=== PATIENT | male | born 1980 | race African-American/Black ===

== ENCOUNTER 2020-04-18 09:08 | Emergency (ER) | payer MEDICARE, MEDICAID ==
[2020-04-18] MEDS ORDERED: NORMAL SALINE 1000 ML 1,000 ML IV ONE (10:18)
--- NOTE | 2020-04-18 10:19 | ER Document Report ---
ED Medical Screen (RME) - General Chief Complaint: Facial Swelling Stated Complaint: FACIAL SWELLING Time Seen by Provider: 04/18/20 10:13 Primary Care Provider: LASHAWN PRICE MD [Primary Care Provider] - Follow up as needed Mode of Arrival: Wheelchair Information source: Outside Facility Records Notes: 39-year-old male presents to ED for complaint of swelling to the right side of his face neck and behind his ear. He is a resident new home. He has a seizure disorder developmental delay cerebral palsy and stuff like. He is alert acting his usual self. I have greeted and performed a rapid initial assessment of this patient. A comprehensive ED assessment and evaluation of the patient, analysis of test results and completion of medical decision making process will be conducted by an additional ED providers. TRAVEL OUTSIDE OF THE [place] IN LAST 30 DAYS: No - Related Data Allergies/Adverse Reactions: levetiracetam [From [facility]] Allergy (Verified 04/18/20 09:28) Past Medical History - Social History Frequency of alcohol use: None Physical Exam - Vital signs Vitals: Temp Pulse Resp BP Pulse Ox 98.0 F 80 18 150/83 H 97 04/18/20 09:15 04/18/20 09:15 04/18/20 09:15 04/18/20 09:15 04/18/20 09:15 Course - Vital Signs Vital signs: Temp Pulse Resp BP Pulse Ox 98.0 F 80 18 150/83 H 97 04/18/20 09:15 04/18/20 09:15 04/18/20 09:15 04/18/20 09:15 04/18/20 09:15 Doctor's Discharge - Discharge Referrals: LASHAWN PRICE MD [Primary Care Provider] - Follow up as needed
[2020-04-18 11:24] LABS: ABSOLUTE LYMPHOCYTES (AUTO) 1.9 10^3/uL (0.5-4.7); ABSOLUTE MONOCYTES (AUTO) 2.1 10^3/uL (0.1-1.4); ABSOLUTE NEUT (AUTO) 7.5 10^3/uL (1.7-8.2); ALBUMIN 4.4 g/dL (3.5-5.0); ALKALINE PHOSPHATASE 69 U/L (38-126); ANION GAP 10 (5-19); ASPARTATE AMINO TRANSFERASE 109 U/L (17-59); BASOPHILS % (AUTO) 0.2 % (0-2); BILIRUBIN,DIRECT 0.2 mg/dL (0.0-0.4); BILIRUBIN,TOTAL 0.7 mg/dL (0.2-1.3); BLOOD UREA NITROGEN 10 mg/dL (7-20); CALCIUM 9.9 mg/dL (8.4-10.2); CARBON DIOXIDE 29 mmol/L (22-30); CHLORIDE 96 mmol/L (98-107); EOSINOPHILS % (AUTO) 0.1 % (0-6); GLUCOSE 94 mg/dL (75-110); HEMATOCRIT 39.4 % (37.9-51.0); HEMOGLOBIN 13.8 g/dL (13.5-17.0); LYMPHOCYTES % (AUTO) 16.7 % (13-45); MEAN CORPUSCULAR HEMOGLOBIN 29.6 pg (27.0-33.4); MEAN CORPUSCULAR VOLUME 85 fl (80-97); MONOCYTES % (AUTO) 18.2 % (3-13); PLATELET COUNT 122 10^3/uL (150-450); RED BLOOD COUNT 4.66 10^6/uL (4.35-5.55); RED CELL DISTRIBUTION WIDTH 13.3 % (11.5-14.0); SEGMENTED NEUTROPHILS % (AUTO) 64.8 % (42-78); TOTAL CELLS COUNTED % (AUTO) 100 %; WHITE BLOOD COUNT 11.7 10^3/uL (4.0-10.5)
[2020-04-18 11:51] LABS: CREATINE KINASE 4881 U/L (55-170)
[2020-04-18] MEDS ORDERED: KETOROLAC TROMETHAMINE INJ/PF 30 MG/1 ML SDV IV ONE (14:07)
[2020-04-18] MEDS ORDERED: AMPICILLIN SOD/SULBACTAM 3 GM VIAL IV ONE (14:07)
--- NOTE | 2020-04-18 15:26 | RADIOLOGY REPORT (SQ) ---
EXAM DESCRIPTION: CT FACIAL AREA WITH IMAGES COMPLETED DATE/TIME: 04/18/2020 2:03 pm REASON FOR STUDY: Facial neck swelling. Swelling at the right maxillary and mandible region. COMPARISON: None. TECHNIQUE: Post contrast images through the facial bones and orbits windowed for bone and soft tissu e. Additional coronal and sagittal reconstructed images reviewed. All images stored on PACS. All CT scanners at this facility use dose modulation, iterative reconstruction, and/or weight based d osing when appropriate to reduce radiation dose to as low as reasonably achievable (ALARA). [facility]: Dose Right [facility]: CareDose [facility]: Dose Right [facility]: Teradose 4D [facility]: [place] CONTRAST TYPE AND DOSE: contrast/concentration: Isovue 350.00 mmol/ml; Total Contrast Delivered: 75. 0 ml; Total Saline Delivered: 55.0 ml RENAL FUNCTION: GFR > 60. RADIATION DOSE: . LIMITATIONS: None. FINDINGS: FACIAL BONES: No fracture or bone lesion. ORBITS: Intact. No fracture. Symmetric intact globes and retroorbital soft tissues. PARANASAL SINUSES: Clear. No significant mucosal thickening, mass or fluid. No nasal polyps. Maxilla ry sinus outlets are patent. SOFT TISSUES: There is soft tissue edema involving the right maxilla and mandible cheek. No focal dr ainable abscess. INFERIOR BRAIN: Limited view. No acute findings. OTHER: No other significant finding. IMPRESSION: Subcutaneous edema at the right cheek. No underlying foreign body or facial bone fractu re. No drainable abscess. TECHNICAL DOCUMENTATION: JOB ID: [id number] Quality ID # [id number]: Final reports with documentation of one or more dose reduction techniques (e.g., Au tomated exposure control, adjustment of the mA and/or kV according to patient size, use of iterative reconstruction technique) 2010 [employer]- All Rights Reserved Reading location - IP/workstation name: [id number]
--- NOTE | 2020-04-18 16:30 | ER Document Report ---
Entered by CHAVA SANDERS SCRIBE 04/18/20 1453 Acting as scribe for:JUANITO HAYDEN MD ED General - General Chief Complaint: Facial Swelling Stated Complaint: FACIAL SWELLING Time Seen by Provider: 04/18/20 10:13 Primary Care Provider: LASHAWN PRICE MD [Primary Care Provider] - Follow up as needed Mode of Arrival: Wheelchair Notes: This 39 year old male patient with a history of hypertension, cerebral palsy, epilepsy, and thrombocytopenia presents to the ED today from the [facility] facility for evaluation. Home health nurse at bedside reports that she noticed that the patient's right cheek was swollen around 0700 this morning. No reported trauma. Denies fever, chills, or skin lesions. He is non-verbal and non-ambulatory at baseline. TRAVEL OUTSIDE OF THE [place] IN LAST 30 DAYS: No - Related Data Allergies/Adverse Reactions: levetiracetam [From [facility]] Allergy (Verified 04/18/20 09:28) Past Medical History - General Information source: Outside Facility Records - Social History Smoking Status: Never Smoker Cigarette use (# per day): No Chew tobacco use (# tins/day): No Smoking Education Provided: No Frequency of alcohol use: None Lives with: Other - [facility] Family History: Reviewed & Not Pertinent - Past Medical History Cardiac Medical History: Reports: Hx Hypertension Neurological Medical History: Reports: Hx Seizures Review of Systems - Review of Systems Constitutional: See HPI EENT: No symptoms reported Cardiovascular: No symptoms reported Respiratory: No symptoms reported Gastrointestinal: No symptoms reported Genitourinary: No symptoms reported Male Genitourinary: No symptoms reported Musculoskeletal: No symptoms reported Skin: See HPI Hematologic/Lymphatic: No symptoms reported Neurological/Psychological: No symptoms reported -: Yes All other systems reviewed and negative Physical Exam - Vital signs Vitals: Temp Pulse Resp BP Pulse Ox 98.0 F 80 18 150/83 H 97 04/18/20 09:15 04/18/20 09:15 04/18/20 09:15 04/18/20 09:15 04/18/20 09:15 - General General appearance: Other - Sleeping, but easily aroused. In distress: None - HEENT Head: Normocephalic, Atraumatic Eyes: Normal Pupils: PERRL Mouth/Lips: Other - There are retained roots of the molars noted on the Bilateral lower mandibular area - Respiratory Respiratory status: No respiratory distress Chest status: Nontender Breath sounds: Normal Chest palpation: Normal - Cardiovascular Rhythm: Regular Heart sounds: Normal auscultation Murmur: No - Abdominal Inspection: Normal Distension: No distension Bowel sounds: Normal Tenderness: Nontender - Abdomen soft Organomegaly: No organomegaly - Back Back: Normal, Nontender - Extremities General upper extremity: Normal inspection General lower extremity: Normal inspection - Neurological Neuro grossly intact: Yes Cognition: Other - Nonverbal at baseline per home health nurse - Psychological Associated symptoms: Normal affect, Normal mood - Skin Skin Temperature: Warm Skin Moisture: Dry Skin Color: Normal Skin irregularity: Tender indurated area - There is a tender indurated area appreciated on the Right maxillary/mandibular facial area that is swollen and warm to the touch. Course - Re-evaluation Re-evalutation: 04/18/20 16:22 Patient resting comfortable. Easily aroused. Soft tissue swelling on the right angle of the jaw and maxillary region is softer and less swollen than prior to antibiotics and IV ketorolac. - Vital Signs Vital signs: Temp Pulse Resp BP Pulse Ox 97.0 F 80 16 143/89 H 97 04/18/20 15:54 04/18/20 15:54 04/18/20 15:54 04/18/20 15:54 04/18/20 09:15 04/18/20 16:23 Vital signs stable - Laboratory Results Result Diagrams: 04/18/20 10:40 04/18/20 10:40 Laboratory Results Interpreted: 04/18/20 04/18/20 10:40 10:40 WBC 11.7 H Plt Count 122 L [place] % (Auto) 18.2 H Absolute Monos (auto) 2.1 H Sodium 134.5 L Chloride 96 L AST 109 H ALT 61 H Creatine Kinase 4881 H Total Protein 9.0 H Critical Laboratory Results Reviewed: No Critical Results - No critical results of laboratories patient does have a white blood cell count 11.7. - Radiology Results Radiology Results Interpreted: 04/18/20 16:[address] 04/18/20 10:16 IMPRESSION: Subcutaneous edema at the right cheek. No underlying foreign body or facial bone fracture. No drainable abscess. 04/18/20 16:24 CT scan of face shows subcutaneous edema in the right cheek but no facial bone fracture or foreign body and no abscess. Critical Radiology Results Reviewed: No Critical Results Discharge - Discharge Clinical Impression: Facial cellulitis, Dental caries Condition: Stable Disposition: HOME, SELF-CARE Additional Instructions: Cellulitis You have an infection of your skin and underlying soft tissues called cellulitis. This is due to bacteria, which can enter through any break in the skin, or even through an irritated hair follicle. Untreated, cellulitis will usually worsen. Antibiotics are required. Usually, warm packs or warm soaks, and elevation of the infected area are recommended. You should start getting better within 24 to 36 hours. Most infections respond quickly to the right medication. Follow-up care is important, however, to check for abscess (boil) formation, unsuspected foreign body, or resistant infection. If you develop fever, chills, or if the area of infection is becoming rapidly more swollen or painful, call the doctor at once. Most likely the right sided facial cellulitis is is most likely related to the poor dentition of the molars in the lower jaw. Highly recommend that patient have evaluation by oral surgeon/dental. Prescriptions: Amoxicillin/Potassium Clav [Augmentin 875-125 Tablet] 1 tab PO BID #20 tab Clindamycin HCl 300 mg PO QID #40 capsule Ibuprofen [Ibu] 800 mg PO TID PRN 7 Days #21 tablet PRN Reason: prn pain/swelling/fever Referrals: LASHAWN PRICE MD [Primary Care Provider] - Follow up as needed I personally performed the services described in the documentation, reviewed and edited the documentation which was dictated to the scribe in my presence, and it accurately records my words and actions.
[2020-04-18 16:51] VITALS: BP 150/98
== END 2020-04-18 16:53 | disposition home or self-care (01) ==
LOC: ER 09:08
DX: L03.211 Cellulitis of face (principal); K02.9 Dental caries, unspecified; R22.0 Localized swelling, mass and lump, head; I10 Essential (primary) hypertension; D69.6 Thrombocytopenia, unspecified; G80.9 Cerebral palsy, unspecified; Z88.8 Allergy status to other drugs, medicaments and biological substances
CPT/HCPCS: 99285; 96361; 96374; 96375; 36415; 82550; 85025; 80053; 70487; J0295; J1885; J7030

== ENCOUNTER 2020-04-23 09:17 | Emergency (ER) | payer MEDICARE, MEDICAID ==
--- NOTE | 2020-04-23 10:17 | ER Document Report ---
ED Medical Screen (RME) - General Chief Complaint: Facial Swelling Stated Complaint: FACIAL SWELLING Time Seen by Provider: 04/23/20 10:11 Primary Care Provider: LASHAWN PRICE MD [Primary Care Provider] - Follow up as needed Notes: Patient was evaluated here on 04/18/2020 for right facial swelling and diagnosed with cellulitis. Patient was started on clindamycin and Augmentin. Patient is still thickening his antibiotics without improvement of his symptoms. Patient had a temperature of 100.3 yesterday and has continued right cheek pain and swelling. Patient has underlying history of hypertension, ADD, seizure disorder, microcephaly and spastic CP. I have greeted and performed a rapid initial assessment of this patient. A comprehensive ED assessment and evaluation of the patient, analysis of test results and completion of the medical decision making process will be conducted by additional ED providers. TRAVEL OUTSIDE OF THE [place] IN LAST 30 DAYS: No - Related Data Allergies/Adverse Reactions: lamotrigine Allergy (Verified 04/23/20 10:11) levetiracetam [From [facility]] Allergy (Verified 04/18/20 09:28) Home Medications: Vitamin D3, Fibercon, Colace, miralax, Norvasc, Lopressor, Depakene, Tranzene, Claritin, Refresh cell gel 1% Past Medical History - Past Medical History Cardiac Medical History: Reports: Hx Hypertension Neurological Medical History: Reports: Hx Seizures Physical Exam - Vital signs Vitals: Temp Pulse Resp BP Pulse Ox 98.4 F 91 20 126/74 H 98 04/23/20 09:24 04/23/20 09:24 04/23/20 09:24 04/23/20 09:24 04/23/20 09:24 - General General appearance: Alert Notes: Tenderness with palpation of right cheek, right cheek indurated, no overt erythema Course - Vital Signs Vital signs: Temp Pulse Resp BP Pulse Ox 98.4 F 91 20 126/74 H 98 04/23/20 09:24 04/23/20 09:24 04/23/20 09:24 04/23/20 09:24 04/23/20 09:24 Doctor's Discharge - Discharge Referrals: LASHAWN PRICE MD [Primary Care Provider] - Follow up as needed
[2020-04-23 13:08] LABS: ABSOLUTE EOSINOPHILS # (AUTO) 0.2 10^3/uL (0.0-0.6); ABSOLUTE LYMPHOCYTES (AUTO) 0.9 10^3/uL (0.5-4.7); ABSOLUTE MONOCYTES (AUTO) 1.5 10^3/uL (0.1-1.4); ABSOLUTE NEUT (AUTO) 8.2 10^3/uL (1.7-8.2); BASOPHILS % (AUTO) 0.5 % (0-2); EOSINOPHILS % (AUTO) 1.6 % (0-6); HEMATOCRIT 35.4 % (37.9-51.0); HEMOGLOBIN 12.5 g/dL (13.5-17.0); LYMPHOCYTES % (AUTO) 8.5 % (13-45); MEAN CORPUSCULAR HEMOGLOBIN 30.2 pg (27.0-33.4); MEAN CORPUSCULAR HGB CONC 35.4 g/dL (32.0-36.0); MEAN CORPUSCULAR VOLUME 85 fl (80-97); MONOCYTES % (AUTO) 13.8 % (3-13); PLATELET COUNT 175 10^3/uL (150-450); RED BLOOD COUNT 4.16 10^6/uL (4.35-5.55); RED CELL DISTRIBUTION WIDTH 12.9 % (11.5-14.0); SEGMENTED NEUTROPHILS % (AUTO) 75.6 % (42-78); TOTAL CELLS COUNTED % (AUTO) 100 %; WHITE BLOOD COUNT 10.8 10^3/uL (4.0-10.5)
[2020-04-23 13:35] LABS: ALBUMIN 3.6 g/dL (3.5-5.0); ALKALINE PHOSPHATASE 113 U/L (38-126); ANION GAP 8 (5-19); ASPARTATE AMINO TRANSFERASE 41 U/L (17-59); BILIRUBIN,DIRECT 0.2 mg/dL (0.0-0.4); BILIRUBIN,TOTAL 0.5 mg/dL (0.2-1.3); BLOOD UREA NITROGEN 9 mg/dL (7-20); CALCIUM 8.8 mg/dL (8.4-10.2); CARBON DIOXIDE 29 mmol/L (22-30); CHLORIDE 101 mmol/L (98-107); GLUCOSE 91 mg/dL (75-110); POTASSIUM 4.6 mmol/L (3.6-5.0); TOTAL PROTEIN 7.9 g/dL (6.3-8.2)
[2020-04-23] MEDS ORDERED: KETOROLAC TROMETHAMINE INJ/PF 30 MG/1 ML SDV IV ONE (13:43)
--- NOTE | 2020-04-23 13:49 | ER Document Report ---
ED General - General Chief Complaint: Facial Swelling Stated Complaint: FACIAL SWELLING Time Seen by Provider: 04/23/20 10:11 Primary Care Provider: LASHAWN PRICE MD [Primary Care Provider] - Follow up as needed TRAVEL OUTSIDE OF THE [place] IN LAST 30 DAYS: No - HPI Notes: Patient is a 39-year-old male brought to the emergency department for evaluation by caregivers. He was seen here a week ago for facial swelling. He was diagnosed with cellulitis, started on Augmentin and clindamycin. He has been taking these as prescribed, Tylenol and ibuprofen as needed for pain. Per caregiver says swelling is gotten significantly worse. Despite Tylenol and ibuprofen he has had fevers as high as 100.3. He is still eating. Per caregivers his teeth have always been unerupted from the gums. He is still taking oral food, taking his medications. He just seems more agitated. He was seen by his primary care provider today who recommended they return to the ED for further evaluation. - Related Data Allergies/Adverse Reactions: lamotrigine Allergy (Verified 04/23/20 10:11) levetiracetam [From [facility]] Allergy (Verified 04/18/20 09:28) Home Medications: Vitamin D3, Fibercon, Colace, miralax, Norvasc, Lopressor, Depakene, Tranzene, Claritin, Refresh cell gel 1% Past Medical History - General Cannot obtain history due to: Mentally challenged - Social History Smoking Status: Never Smoker Family History: Reviewed & Not Pertinent - Medical History Medical History: Other - Cerebral palsy - Past Medical History Cardiac Medical History: Reports: Hx Hypertension Neurological Medical History: Reports: Hx Seizures Review of Systems - Review of Systems Constitutional: See HPI EENT: See HPI Cardiovascular: No symptoms reported Respiratory: No symptoms reported Gastrointestinal: No symptoms reported Genitourinary: No symptoms reported Musculoskeletal: No symptoms reported Skin: No symptoms reported Neurological/Psychological: No symptoms reported Physical Exam - Vital signs Vitals: Temp Pulse Resp BP Pulse Ox 98.4 F 91 20 126/74 H 98 04/23/20 09:24 04/23/20 09:24 04/23/20 09:24 04/23/20 09:24 04/23/20 09:24 - Notes Notes: There is a 39-year-old male appears stated age in a moderate amount of stress. Head is normocephalic. He has marked edema noted in the perioral region, overlying the Maller region of the right, the tracks back towards the preauricular regions. I do not appreciate any significant calor overlying the parotid. He has some minimal edema under the angle of the jaw but I do not appreciate any significant submandibular adenopathy. Overall dentition is difficult to evaluate secondary to patient cooperation but most of his teeth have not erupted from the gumline. He has no sublingual swelling to palpation, visual inspection is limited. Pupils are equal and round. Oral mucosa is moist. Heart regular rate and rhythm, lungs are clear to auscultation bilaterally. Skin is warm and dry. Course - Re-evaluation Re-evalutation: 04/23/20 13:47 Patient presents to the emergency department for evaluation. He was seen here 6 days ago, diagnosed with cellulitis, given IV antibiotics and started on Augmentin and clindamycin. He has been receiving these appropriately. L aboratory investigations at that time had shown a leukocytosis. This is improved somewhat, he is not febrile here, but again he has been taking Tylenol and ibuprofen. He is given Toradol for perceived pain. I will repeat his CT scan as per caregiver says swelling has worsened. Consent for IV contrast will be obtained from his guardian over the phone. He is currently stable, we will continue to monitor. 04/23/20 16:[address] scan showed continued cellulitis, no signs of abscess. I do believe a lot of his continued edema may be secondary to the fact that he has limited mobility, his lymphatic drainage is certainly retarded by that. He is also been laying flat to sleep. I suspect that this is worsening his edema as well. They are encouraged to keep the head of the bed elevated to release 45 degrees to help with drainage. Beyond this, his white count is come down. I do not think that any additional antibiotics would be helpful given the fact that he is already on Augmentin and clindamycin. He is tolerating these orally, certainly no need for IV antibiotics at this time. He is to continue the course with the clindamycin and Augmentin, follow-up closely with primary care, and return to the ED with worsening. - Vital Signs Vital signs: Temp Pulse Resp BP Pulse Ox 98.4 F 91 20 126/74 H 98 04/23/20 09:24 04/23/20 09:24 04/23/20 09:24 04/23/20 09:24 04/23/20 09:24 - Laboratory Results Result Diagrams: 04/23/20 12:51 04/23/20 12:51 Laboratory Results Interpreted: 04/23/20 04/23/20 12:51 12:51 WBC 10.8 H RBC 4.16 L Hgb 12.5 L Hct 35.4 L Lymph % (Auto) 8.5 L [place] % (Auto) 13.8 H Absolute Monos (auto) 1.5 H Creatinine 0.51 L ALT 53 H Critical Laboratory Results Reviewed: No Critical Results - Radiology Results Radiology Results Interpreted: 04/23/20 16:[address] 04/23/20 13:43 IMPRESSION: Cellulitis. No abscess. Critical Radiology Results Reviewed: No Critical Results Discharge - Discharge Clinical Impression: Facial cellulitis Condition: Stable Disposition: HOME, SELF-CARE Instructions: Cellulitis ([facility]) Additional Instructions: Try to keep head elevated as much as possible, including it bedtime. Continue the antibiotics as previously instructed, ibuprofen as directed. Follow-up closely with primary care provider next week. If he develops any apparent diff iculty breathing or swallowing, or any other new or concerning symptoms, please return immediately to the emergency department for evaluation. Referrals: LASHAWN PRICE MD [Primary Care Provider] - Follow up as needed
--- NOTE | 2020-04-23 15:02 | RADIOLOGY REPORT (SQ) ---
EXAM DESCRIPTION: CT SOFT TISSUE NECK WITH IMAGES COMPLETED DATE/TIME: 04/23/2020 2:49 pm REASON FOR STUDY: edema, fever COMPARISON: None. TECHNIQUE: Post IV contrasted scanning from skull base through lung apices with review of bone, soft tissue and lung windows. Reconstructed coronal and sagittal MPR images reviewed. All images stored on PACS. All CT scanners at this facility use dose modulation, iterative reconstruction, and/or weight based d osing when appropriate to reduce radiation dose to as low as reasonably achievable (ALARA). [facility]: Dose Right [facility]: CareDose [facility]: Dose Right [facility]: Teradose 4D [facility]: [employer] CONTRAST TYPE AND DOSE: contrast/concentration: Isovue 350.00 mmol/ml; Total Contrast Delivered: 75. 0 ml; Total Saline Delivered: 39.9 ml RENAL FUNCTION: GFR > 60. RADIATION DOSE: CT Rad equipment meets quality standard of care and radiation dose reduction techniq ues were employed. CTDIvol: 22.1 mGy. DLP: 702 mGy-cm. . LIMITATIONS: Positioning. FINDINGS: SKULL BASE: Intact. MAJOR SALIVARY GLANDS: No solid or cystic masses. No inflammatory changes. LYMPHADENOPATHY: No adenopathy. MUCOSAL MASSES OR ASYMMETRY: Inflammatory changes in the subcutaneous tissues of the right cheek and mandible. No abscess. LARYNX/CORDS: No abnormal findings. VASCULAR STRUCTURES: The major vessels are patent. LUNG APICES: Clear. BONES: Intact. THYROID: Normal size. No masses. PARANASAL SINUSES: Clear. OTHER: No other significant finding. IMPRESSION: Cellulitis. No abscess. TECHNICAL DOCUMENTATION: JOB ID: [id number] Quality ID # [id number]: Final reports with documentation of one or more dose reduction techniques (e.g., Au tomated exposure control, adjustment of the mA and/or kV according to patient size, use of iterative reconstruction technique) 2010 [employer] All Rights Reserved Reading location - IP/workstation name: [email or web address]
[2020-04-23 16:47] VITALS: BP 136/60
== END 2020-04-23 16:47 | disposition home or self-care (01) ==
LOC: ER 09:17
DX: L03.211 Cellulitis of face (principal); G80.9 Cerebral palsy, unspecified; K00.6 Disturbances in tooth eruption; I10 Essential (primary) hypertension; R56.9 Unspecified convulsions; Z79.899 Other long term (current) drug therapy; Z88.8 Allergy status to other drugs, medicaments and biological substances
CPT/HCPCS: 99285; 96374; 36415; 85025; 80053; 70491; J1885